=== PATIENT | male | born 1995 | race Caucasian/White ===

== ENCOUNTER 2018-04-17 18:28 | Emergency (ER) | payer SELFPAY ==
[~2018-04-17] VITALS: Ht 180.3 cm; Wt 77.1 kg
--- OUTSIDE RECORDS SUMMARY | 2018-04-17 18:34 | XMS REPORT ---
Author Author [facility] Medical Staff Organization [facility] Address [phone] [place] [id number] Phone [phone] Care Team Providers Care Airplane Pilot Name Role Phone ELIZABETH GONZALEZ MD PP [phone] Summary purpose CCDA Sent to [facility] Chief Complaint and Reason for Visit Admit Diagnosis 1 FINGER INJURY NOS Problem list No authorized problems tracked for continuity of care are available for this visit. Encounters No authorized problems tracked for encounter diagnoses are available for this visit. Medications No home medications recorded for this patient visit Allergies, adverse reactions, alerts Allergen Category Ingredient Status Reaction Severity Onset *MRSA Miscellaneous *MRSA Inactive No known drug allergies No known drug allergies No known drug allergies Active Immunizations No immunizations recorded for this patient visit Relevant diagnostic tests and/or laboratory data No authorized results are available for this patient visit History of procedures Procedure Code Code Type Description Date Performed Performing Physician 08631 CPT-4 X-RAY EXAM OF HAND 01-11-2015 ALFONSO CARMEN 81139 CPT-4 EMERGENCY DEPT VISIT 01-11-2015 ALFONSO CARMEN Functional status Cognitive Status Finding Observation Time Level of Consciousne Alert [id number] Oriented to Person Yes [id number] Yes [id number] Oriented to Time Yes [id number] Vital signs Type Value Date Respirations 20 :36 Pulse 68 :36 O2 Saturation 98% :36 Systolic Blood Press 135mm/HG :36 Diastolic Blood Pres 77mm/HG :36 Temperature (Fahr) 98.2Degrees :36 Social history Type Value Smoking Status UNKNOWN IF EVER SMOKED Treatment Plan No treatment plan text is available for this visit. Hospital discharge instructions Diagnosis Finger pain/injury Diet regular Activity Level as tolerated. Med Dispensed by Pro none. May take ibuprofen for the swelling/discomfort. Follow up with as needed Wound Care Serjio tape finger to adjacent finger for comfort. Ice, elevate, ibuprofen. Avoid overuse. Other Instructions Follow up in clinic as needed.
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
[2018-04-17 19:27] VITALS: BP 125/74
== END 2018-04-17 19:26 | disposition home or self-care (01) ==
LOC: ER 18:31
DX: S40.022A Contusion of left upper arm, initial encounter (principal); W22.09XA Striking against other stationary object, initial encounter
CPT/HCPCS: 99282